=== PATIENT | female | born 1985 | race Caucasian/White ===

== ENCOUNTER 2017-06-10 21:07 | Emergency (ER) | payer SELFPAY, MEDICAID | END 2017-06-10 23:57 | disposition left against medical advice (07) | LOC: E/R 21:07 | DX: Z53.21 Procedure and treatment not carried out due to patient leaving prior to being seen by health care provider (principal) ==

== ENCOUNTER 2017-07-07 11:29 | Emergency (ER) | payer MEDICAID | END 2017-07-07 14:21 | disposition home or self-care (01) | LOC: FTE 11:29 | DX: L85.3 Xerosis cutis (principal) | CPT/HCPCS: 99283; Z7502 ==

== ENCOUNTER 2017-08-20 08:13 | Emergency (ER) | payer MEDICAID | END 2017-08-20 09:36 | disposition home or self-care (01) | LOC: FTE 09:36 | DX: B35.2 Tinea manuum (principal) | CPT/HCPCS: 99283; Z7502 ==